=== PATIENT | male | born 1965 | race Caucasian/White ===

== ENCOUNTER 2016-05-03 13:01 | Emergency (ER) | payer BC ==
[~2016-05-03] VITALS: Ht 175.3 cm; Wt 138.9 kg
[~2016-05-03 13:01] MED LIST: HYDR25TA4 PO; IBUP-1050 PO; LISI-461 PO; PRLSR20 PO
[2016-05-03 13:11] VITALS: TEMP 36.9; Ht 175.3 cm; Wt 138.9 kg
[2016-05-03] MEDS ORDERED: ONDANSETRON INJ 2 MG/ML 2 ML VIAL IV STA (13:47)
[2016-05-03] MEDS ORDERED: SODIUM CHLORIDE 0.9% 1000ML 1,000 ML IV STA (13:47)
[2016-05-03] MEDS ORDERED: KETOROLAC TROMETHAMINE 30 MG/ML VIAL IV STA (13:47)
--- NOTE | 2016-05-03 13:51 | EMERGENCY ROOM VISIT NOTE ---
History Report prepared by [place]: Maggie Mccall Under the Supervision of: Dr. Albert Penny M.D. First contact with patient: 13:41 Chief Complaint: FLANK PAIN Stated Complaint: LOWER RIGHT BACK PAIN History of Present Illness The patient is a 50 year old male who presents to the Emergency Room with complaints of persistent bilateral flank pain for the past 1 week. He rates his pain as a 7/10 and states he has been unable to sleep because of his discomfort , which is worse at night. He denies any dysuria or hematuria. He notes he experienced a kidney stone 20 years ago. He denies any recent diarrhea, nausea or vomiting. His reports he fell while jumping off his truck "a few weeks ago", and may have injured his back during that incident. The patient's primary care physician is a Dr. Joe Morrell in [place]. Source of History: patient, spouse/significant other () Onset: 1 week [employer] Position: back (bilateral) Symptom Intensity: 7/10 Timing: other (persistent) Modifying Factors (Worsening): other (pain is worse at night) Associated Symptoms: No diarrhea, No nausea, No urinary symptoms, No vomiting Review of Systems See HPI for pertinent positives & negatives. A total of 10 systems reviewed and were otherwise negative. Past Medical & Surgical Medical Problems: (1) Hypertension Family History Heart disease Hypertension Kidney disease Kidney stones Social History Smoking Status: Never Smoker Smokeless Tobacco Use: No Alcohol Use: occasionally Drug Use: none Marital Status: Housing Status: lives with family Occupation Status: employed Current/Historical Medications Scheduled Furosemide (Lasix), 20 MG PO DAILY Hydrochlorothiazide (Hctz), 25 MG PO DAILY Ibuprofen (Motrin), 600 MG PO TID Lisinopril (Prinivil), 20 MG PO DAILY Omeprazole (Prilosec), 20 MG PO DAILY Scheduled PRN Cyclobenzaprine Hcl (Flexeril), 10 MG PO TID PRN for Muscle Spasms Oxycodone Ir (Roxicodone Ir), 1-2 TAB PO Q4H PRN for Pain Allergies Coded Allergies: No Known Allergies (Verified , 02/14/14) Physical Exam Vital Signs Date Time Temp Pulse Resp B/P Pulse Ox O2 Delivery O2 Flow Rate FiO2 05/03/16 15:47 59 20 125/73 98 05/03/16 14:47 60 20 149/93 99 Room Air 05/03/16 13:51 60 05/03/16 13:11 36.9 70 18 144/92 95 Room Air Physical Exam GENERAL: Patient is in no acute distress. HEENT: No acute trauma, normocephalic atraumatic, mucous membranes moist, no nasal congestion, no scleral icterus. NECK: No stridor, no adenopathy, no meningismus, trachea is midline. LUNGS: Clear to auscultation bilaterally, no wheeze, no rhonchi, breath sounds equal. HEART: Without murmurs gallops or rubs, regular rate and rhythm. ABDOMEN: Soft, mildly diffusely tender, bowel sounds positive, no hernias, no peritonitis. BACK: Bilateral flank discomfort with percussion, no lumbar spinal step off or focal tenderness, some tenderness to palpate both sides of the lumbar musculature. EXTREMITIES: No cyanosis or edema, full range of motion of all the joints without pain or difficulty, no signs for acute trauma. NEUROLOGIC: Oriented x 3, no acute motor or sensory deficits, no focal weakness. SKIN: No rash, no jaundice, no diaphoresis. Medical Decision & Procedures ER Provider Diagnostic Interpretation: This CT scan was reviewed and interpreted by the radiologist and reviewed by myself. CT SCAN OF THE ABDOMEN AND PELVIS WITHOUT CONTRAST IMPRESSION: 1. No evidence of bowel obstruction. No evidence of free air 2. No renal, ureteral, or bladder calculi identified 3. Normal appendix. No evidence of acute diverticulitis. 4. Fat-containing inguinal hernias Electronically signed by: Robby Santiago M.D. 05/03/2016 2:36 PM Laboratory Results 05/03/16 13:45 Red Blood Count 6.08, Mean Corpuscular Volume 58.4, Mean Corpuscular Hemoglobin 19.4, Mean Corpuscular Hemoglobin Concent 33.2, Mean Platelet Volume 8.8, Neutrophils (%) (Auto) 52.5, Lymphocytes (%) (Auto) 38.2, Monocytes (%) (Auto) 7.4, Eosinophils (%) (Auto) 1.4, Basophils (%) (Auto) 0.3, Neutrophils # (Auto) 3.31, Lymphocytes # (Auto) 2.41, Monocytes # (Auto) 0.47, Eosinophils # (Auto) 0.09, Basophils # (Auto) 0.02 05/03/16 13:45 Test 05/03/16 13:45 05/03/16 14:45 White Blood Count 6.31 K/uL (4.8-10.8) Red Blood Count 6.08 M/uL (4.7-6.1) Hemoglobin 11.8 g/dL (14.0-18.0) Hematocrit 35.5 % (42-52) Mean Corpuscular Volume 58.4 fL (80-100) Mean Corpuscular Hemoglobin 19.4 pg (25-34) Mean Corpuscular Hemoglobin Concent 33.2 g/dl (32-36) Platelet Count 249 K/uL (130-400) Mean Platelet Volume 8.8 fL (7.4-10.4) Neutrophils (%) (Auto) 52.5 % Lymphocytes (%) (Auto) 38.2 % Monocytes (%) (Auto) 7.4 % Eosinophils (%) (Auto) 1.4 % Basophils (%) (Auto) 0.3 % Neutrophils # (Auto) 3.31 K/uL (1.4-6.5) Lymphocytes # (Auto) 2.41 K/uL (1.2-3.4) Monocytes # (Auto) 0.47 K/uL (0.11-0.59) Eosinophils # (Auto) 0.09 K/uL (0-0.5) Basophils # (Auto) 0.02 K/uL (0-0.2) RDW Standard Deviation 37.8 fL (36.4-46.3) RDW Coefficient of Variation 18.3 % (11.5-14.5) Immature Granulocyte % (Auto) 0.2 % Immature Granulocyte # (Auto) 0.01 K/uL (0.00-0.02) Polychromasia 1+ Microcytosis PRESENT Ovalocytes 1+ Anion Gap 9.0 mmol/L (3-11) Est Creatinine Clear Calc Drug Dose 179.5 ml/min Estimated GFR () 129.2 Estimated GFR (Non- 111.5 BUN/Creatinine Ratio 17.5 (10-20) Calcium Level 9.4 mg/dl (8.5-10.1) Total Bilirubin 0.7 mg/dl (0.2-1) Aspartate Amino Transf (AST/SGOT) 12 U/L (15-37) Alanine Aminotransferase (ALT/SGPT) 34 U/L (12-78) Alkaline Phosphatase 63 U/L (45-117) Total Protein 7.5 gm/dl (6.4-8.2) Albumin 3.9 gm/dl (3.4-5.0) Globulin 3.6 gm/dl (2.5-4.0) Albumin/Globulin Ratio 1.1 (0.9-2) Lipase 140 U/L (73-393) Urine Color YELLOW Urine Appearance CLEAR (CLEAR) Urine pH 6.5 (4.5-7.5) Urine Specific [place] 1.003 (1.000-1.030) Urine Protein NEG (NEG) Urine Glucose (UA) NEG (NEG) Urine Ketones NEG (NEG) Urine Occult Blood NEG (NEG) Urine Nitrite NEG (NEG) Urine Bilirubin NEG (NEG) Urine Urobilinogen NEG (NEG) Urine Leukocyte Esterase NEG (NEG) The patient's urine dip is negative for infection or blood. Laboratory results reviewed by me. Medications Administered Medications (Trade) Dose Ordered Sig/Kong Route Start Time Stop Time Status Last Admin Dose Admin Ondansetron HCl 4 mg 4 mg NOW STAT IV 05/03/16 13:47 05/03/16 13:49 DC 05/03/16 13:57 4 MG Sodium Chloride (Nss 1000ml) 1,000 ml @ 999 mls/hr Q1H1M STAT IV 05/03/16 13:47 05/03/16 14:47 DC 05/03/16 13:52 999 MLS/HR Morphine Sulfate (MoRPHine SULFATE INJ) 6 mg Q15M PRN IV 05/03/16 14:00 05/03/16 16:02 DC 05/03/16 14:44 6 MG Ketorolac Tromethamine (Toradol Inj) 30 mg NOW STAT IV 05/03/16 13:47 05/03/16 13:49 DC 05/03/16 13:57 30 MG ED Course 1342: The patient was evaluated in room C4. A complete history and physical exam was performed. 1347: Toradol 30 mg IV, NSS 1000 ml @ 999 mls/hr IV, Zofram 4 mg IV. 1400: Morphine Sulfate 6 mg IV. 1505: I reevaluated the patient. He is feeling much better. I discussed his results and discharge instructions and he verbalized complete understanding. Medical Decision The differential diagnoses considered include: Musculoskeletal pain, renal colic , UTI, diverticulitis, colitis, renal failure, electrolyte imbalance, anemia There is no leukocytosis or concerning anemia. No significant electrolyte abnormality, kidney failure or hepatitis. There is no pancreatitis. Urinalysis does not show infection or hematuria. Abdominal and pelvis CT shows no evidence for acute surgical pathology. There was no bowel obstruction or free air, no ureteral stones. The patient's pain is likely musculoskeletal. There is some reproducible muscular soreness on exam. The patient was reassured. He will be discharged with Flexeril, oxycodone, Motrin, heat was encouraged, massage and rest were encouraged. If worsening, he can return. [place] Drug Monitoring Program Search Results: no issues identified Impression Primary Impression: Low back pain Scribe Attestation The scribe's documentation has been prepared under my direction and personally reviewed by me in its entirety. I confirm that the note above accurately reflects all work, treatment, procedures, and medical decision making performed by me. Departure Information Dispostion Home / Self-Care Prescriptions Ibuprofen (Motrin) 600 Mg Tab 600 MG PO TID, #15 TAB With Food Prov: Albert Penny M.D. 05/03/16 Oxycodone Ir (Roxicodone Ir) 5 Mg Tab 1-2 TAB PO Q4H Y for Pain, #12 TAB Prov: Albert Penny M.D. 05/03/16 Cyclobenzaprine Hcl (FLEXERIL) 10 Mg Tab 10 MG PO TID Y for Muscle Spasms, #21 TAB Prov: Albert Penny M.D. 05/03/16 Referrals Joe Brown DO (PCP) Patient Instructions My [facility] Additional Instructions motrin 600 mg 3x per day for 5 days flexeril 1 tab up to 3x per day for muscle relaxation oxy ir 1 tab every 4 hours for severe pain as needed heat, massage, gentle stretching may help return for fever, vomiting or worsening symptoms no lifting
[2016-05-03] MEDS: MoRPHine SULFATE 10 MG/ML CARP/VIAL IV PRN ×2 (13:57→14:44)
[2016-05-03 14:01] LABS: BASO % 0.3 %; BASO ABS # 0.02 K/uL (0-0.2); EOS % 1.4 %; HEMATOCRIT 35.5 % (42-52); IG% 0.2 %; LYMPH % 38.2 %; LYMPH ABS # 2.41 K/uL (1.2-3.4); MEAN CELL VOLUME 58.4 fL (80-100); MEAN CORPUSCULAR HEMOGLOBIN 19.4 pg (25-34); MEAN CORPUSCULAR HGB CONC 33.2 g/dl (32-36); MEAN PLATELET VOLUME 8.8 fL (7.4-10.4); MONO % 7.4 %; NEUT % 52.5 %; PLATELET COUNT 249 K/uL (130-400); RED BLOOD COUNT 6.08 M/uL (4.7-6.1); WHITE BLOOD COUNT 6.31 K/uL (4.8-10.8)
[2016-05-03 14:13] LABS: BUN/CREATININE RATIO 17.5 (10-20); CALCIUM 9.4 mg/dl (8.5-10.1); CREATININE 0.69 mg/dl (0.60-1.40)
[2016-05-03 14:16] LABS: ALB/GLOB RATIO 1.1 (0.9-2)
[2016-05-03 14:24] LABS: COMPLETE YES; MICROCYTOSIS PRESENT; OVALOCYTES 1+; POLYCHROMASIA 1+
--- NOTE | 2016-05-03 14:38 | DIAGNOSTIC IMAGING REPORT ---
CT SCAN OF THE ABDOMEN AND PELVIS WITHOUT CONTRAST CLINICAL HISTORY: Flank pain hematuria COMPARISON STUDY: No previous studies for comparison. TECHNIQUE: CT scan of the abdomen and pelvis was performed from the lung bases to the proximal femurs. Images are reviewed in the axial, sagittal, and coronal planes. IV contrast was not administered for this examination. CT DOSE: 1801.93 mGy.cm FINDINGS: Lower chest: The heart is the upper limits of normal in size. There are no significant pleural effusions. Liver: The unenhanced liver is normal in size, contour, and attenuation. There is no intrahepatic biliary ductal dilatation. Gallbladder: Unremarkable. Spleen: Normal in size and attenuation. Pancreas: Unremarkable. Adrenal glands: Unremarkable. Kidneys: No renal, ureteral, or bladder calculi are visualized. Bowel: There are no transition zones indicate bowel obstruction. The appendix appears normal. There is no evidence of acute diverticulitis. Peritoneum: There is no intraperitoneal free air or abdominal ascites. There are bilateral fat-containing inguinal hernias left larger than right. There is very subtle central mesenteric edema. Mesenteric lymph nodes are at the upper limits of normal in size. Vasculature: The abdominal aorta is normal in course and caliber. Adenopathy: None. Pelvic viscera: There is mild bladder distention. Skeletal structures: There is a fat-containing right gluteus intramuscular lipoma IMPRESSION: 1. No evidence of bowel obstruction. No evidence of free air 2. No renal, ureteral, or bladder calculi identified 3. Normal appendix. No evidence of acute diverticulitis. 4. Fat-containing inguinal hernias Electronically signed by: Robby Santiago M.D. 05/03/2016 2:36 PM Dictated Date/Time: 05/03/2016 2:31 PM
[2016-05-03] MEDS ORDERED: LISI20TA3 PO (14:41)
[2016-05-03] MEDS ORDERED: FURO-85 PO (14:41)
[2016-05-03 15:05] LABS: URINE APPEARANCE CLEAR (CLEAR); URINE BILIRUBIN NEG (NEG); URINE COLOR YELLOW; URINE NITRITE NEG (NEG); URINE PH 6.5 (4.5-7.5); URINE SPECIFIC GRAVITY 1.003 (1.000-1.030); UROBILINOGEN NEG (NEG); ZZUR CULT IF INDIC CLEAN CATCH NO
[2016-05-03] MEDS ORDERED: OXYC1TAB3 PO (15:18)
[2016-05-03] MEDS ORDERED: CYCL10TA6 PO (15:18)
[2016-05-03] MEDS ORDERED: IBUP600T44 PO (15:18)
[2016-05-03 15:19] LABS: MANUAL MICROSCOPIC REQUIRED? NO; REVIEW REQ? NO
[2016-05-03 15:47] VITALS: BP 125/73; PULSE 59; O2SAT 98
== END 2016-05-03 15:49 | disposition home or self-care (01) ==
LOC: C.EDB 13:02 → C.EDC 15:49
DX: M54.5 Low back pain (principal); I10 Essential (primary) hypertension

== ENCOUNTER 2019-01-10 17:24 | Observation (INO) ==
[2019-01-10] MEDS ORDERED: NITROGLYCERIN 2% OINTMENT 30GM TUBE EXT STA (18:17)
[2019-01-10] MEDS ORDERED: FAMOTIDINE 20MG/5ML IV PUSH IV STA (18:17)
[2019-01-10 18:51] LABS: Basophils # (auto) 0.02 K/uL (0-0.2); Basophils % (auto) 0.3 %; Eosinophils % (auto) 1.6 %; Hematocrit (blood only) 31.2 % (42-52); Hemoglobin 10.3 g/dL (14.0-18.0); Immature Granulocytes # (auto) 0.02 K/uL (0.00-0.02); Immature Granulocytes % (auto) 0.3 %; Lymphocytes # (auto) 2.24 K/uL (1.2-3.4); Lymphocytes % (auto) 34.7 %; Mean Corpuscular Volume 63.5 fL (80-100); Mean Platelet Volume 9.8 fL (7.4-10.4); Monocytes # (auto) 0.46 K/uL (0.11-0.59); Monocytes % (auto) 7.1 %; Neutrophils # (auto) 3.61 K/uL (1.4-6.5); Platelet Count 180 K/uL (130-400); RDW Coefficient of Variation 16.6 % (11.5-14.5); RDW Standard Deviation 38.1 fL (36.4-46.3); Red Blood Count 4.91 M/uL (4.7-6.1); White Blood Count 6.45 K/uL (4.8-10.8)
--- NOTE | 2019-01-10 18:58 | XRay Report ---
XR chest 1V portable HISTORY: 53 years-old Male cp, sob acute atypical chest pain with shortness of breath COMPARISON: Chest radiograph 01/18/2014 TECHNIQUE: Portable AP view of the chest FINDINGS: Cardiac silhouette is enlarged, increased in size from comparison study. No pneumothorax, pleural eff usion, focal airspace consolidation or overt pulmonary edema. Mild right hemidiaphragmatic elevation. General changes of the shoulders and spine. IMPRESSION: Cardiomegaly without acute process. The above report was generated using voice recognition software. It may contain grammatical, syntax o r spelling errors. Electronically signed by: Sergio Costa M.D. 01/10/2019 6:57 PM
[2019-01-10 19:05] LABS: D Dimer 1030 ug/L FEU (0-500)
[2019-01-10 19:09] LABS: Alanine Aminotransferase 35 U/L (12-78); Albumin Level 3.8 gm/dl (3.4-5.0); Aspartate Aminotransferase 18 U/L (15-37); BUN Creatinine Ratio 19.8 (10-20); Blood Urea Nitrogen 15 mg/dl (7-18); Calcium 9.2 mg/dl (8.5-10.1); Carbon Dioxide 26 mmol/L (21-32); Chloride 104 mmol/L (98-107); Creatinine Clr Calc Pharmacy 159.7 ml/min; Est GFR (African American) 122.2; Est GFR (Non-African American) 105.5; Glucose 88 mg/dl (70-99); Lipase 99 U/L (73-393); Magnesium 2.1 mg/dl (1.8-2.4); Potassium 2.9 mmol/L (3.5-5.1); Sodium 140 mmol/L (136-145)
[2019-01-10] MEDS ORDERED: POTASSIUM CHLORIDE 20 MEQ TABCR PO STA (19:10)
[2019-01-10 19:13] LABS: Anisocytosis Present; Hypochromasia Present; Polychromasia 1+
[2019-01-10 19:14] LABS: Albumin Globulin Ratio 1.1 (0.9-2); Alkaline Phosphatase 54 U/L (45-117); Bilirubin,Total 0.6 mg/dl (0.2-1); Globulin 3.4 gm/dl (2.5-4.0); NT Pro B Type Natriuretic Pept 668 pg/ml (0-900); Total Protein 7.2 gm/dl (6.4-8.2); Troponin I < 0.015 ng/ml (0-0.045)
[2019-01-10] MEDS ORDERED: OPTIRAY 320 125ml IV PRN (19:59)
--- NOTE | 2019-01-10 20:22 | CT Scan Report ---
CT angio chest PE protocol CT DOSE: 833.37 mGy.cm HISTORY: 53 years-old Male with PE. Acute shortness of breath with chest pain TECHNIQUE: Multiple CTA images of the chest were obtained after the intravenous administration of 119 ml Optiray 320. Coronal and sagittal MIPS were obtained from the axial data set and were submitted for review. All measurements were obtained according to NASCET criteria. A dose lowering technique w as utilized adhering to the principles of ALARA. COMPARISON: Chest radiograph 01/10/2019 FINDINGS: CTA: Heart is mildly enlarged. No pericardial effusion. Left heart structures and left ventricular outflow tract are suboptimally opacified secondary to contrast bolus timing. Mild fusiform dilation of the a scending thoracic aorta, 4.0 x 4.0 cm. No dissection. The pulmonary arterial tree is opacified to lev el the subsegmental branches. The distal segmental and subsegmental branches however are suboptimally visualized secondary to respiratory motion. No focal filling defects identified to suggest pulmonary thromboembolic disease. CT CHEST: Mildly heterogeneous appearance of the thyroid. Nonspecific mildly prominent subcarinal and right hil ar lymph nodes. Trace pleural effusions are noted bilaterally. No pneumothorax. Mild emphysema with b ilateral bronchial wall thickening. Mild mosaic attenuation of the lung bases suggest air-trapping. M inimal bibasilar groundglass densities suggest atelectasis. No suspicious pulmonary nodules or masses . Central airways appear patent. Hyperdense material noted within the proximal gastric lumen. Gynecomastia. Bones appear to be intact. IMPRESSION: 1. No evidence of pulmonary thromboembolic disease. 2. Mild fusiform dilation of the ascending thoracic aorta, 4.0 x 4.0 cm. 3. Emphysema with bilateral bronchial wall thickening suggestive of probable bronchitis. 4. Mild bibasilar atelectasis with air trapping. 5. Cardiomegaly. 6. Trace pleural effusions. The above report was generated using voice recognition software. It may contain grammatical, syntax o r spelling errors. Electronically signed by: Sergio Costa M.D. 01/10/2019 8:20 PM
[2019-01-10] MEDS ORDERED: DEXAMETHASONE SOD PHOSPHATE 10 MG in SYRINGE 0 ML IV STA (20:23)
[2019-01-10] MEDS ORDERED: ALBUT/IPRATROP 3MG/0.5MG NEB 3 ML VIAL NEB STA (20:23)
[2019-01-10] MEDS ORDERED: DEXAMETHASONE **PF** INJ 10 MG/ML VIAL ONE (21:17)
--- NOTE | 2019-01-10 21:33 | Ultrasound Report ---
BILATERAL LOWER EXTREMITY VENOUS DOPPLER HISTORY: Acute edema of the bilateral lower extremity le edema, elevated dimer COMPARISON STUDY: Duplex venous Doppler study 11/17/2014. FINDINGS: There is normal compressibility, flow, and augmentation within the bilateral lower extremit y deep venous systems. Cast vessels are suboptimally visualized secondary to lower extremity subcutan eous edema. A mildly complex right-sided Estes's cyst is noted, 2.7 x 5.3 x 2.9 cm. Nonspecific mildl y enlarged lymph node of the left inguinal distribution, 3.2 x 1.7 cm is nonspecific with prominent f atty hilum and normal-appearing cortex. This is likely on a physiologic basis. IMPRESSION: No DVT within the right or left lower extremity. Electronically signed by: Sergio Costa M.D. 01/10/2019 9:31 PM
[2019-01-10] MEDS ORDERED: ACETAMINOPHEN 325 MG TAB PO STA (22:26)
--- NOTE | 2019-01-10 22:26 | Emergency Department Note ---
Entered by Doris Singh acting as a scribe for History of Present Illness General Chief complaint: Shortness of Breath/Dyspnea Stated complaint: SHORTNESS OF BREATH, SHARP PAIN IN ABDOMEN Time Seen by Provider: 01/10/19 18:03 Source: patient History of Present Illness Onset (ago): day(s) 3 Location: left (lung) and right (lung) Radiation: abdomen Pain Consistency: + other (Worsening) Maximum Pain Intensity: 7 Quality: + other (Shortness of breath) Relieved By: not by medication (Tylenol, Magnesium Citrate) Exacerbated By: + movement Associated symptoms: + shortness of breath and + other (Positive abdominal pain, lower extremity edema.); no fever/chills The patient is a 53 year old male presenting to the Emergency Department complaining of worsening shortness of breath and chest pain starting 3 days ago. The patient reports that he is short of breath. He explains that he has chest/abdominal pain and that this pain radiates from the left side of his abdomen to the right side of his abdomen. No prior similar episodes. He states that when he walks around his shortness of breath worsens. No recent URI symptoms. He notes that his lower extremities are swollen. He adds that he ate spicy food and that this worsened his abdominal pain but has since then stopped eating spicy foods and still has this abdominal pain. The patient reports that he has been taking Tylenol and Magnesium Citrate for his symptoms thinking perhaps it was related to constipation and that this has not been helping. He states that he normally wears a C-PAP at night but that this has not been he lping his symptoms either. He notes that he used to be a smoker but quit about 20 years ago. The patient denies fevers, chills, history of asthma, history of pneumonia and history of cardiac disease. Home Medications Home Medications Medication Instructions Recorded Confirmed Type cabergoline 0.5 mg PO DIRECTED 01/10/19 01/10/19 History cholecalciferol (vitamin D3) 5,000 unit PO BID 01/10/19 01/10/19 History [Vitamin D3] furosemide 20 mg PO QAM 01/10/19 01/10/19 History hydrochlorothiazide 25 mg PO DAILY 01/10/19 01/10/19 History lisinopril 20 mg PO DAILY 01/10/19 01/10/19 History magnesium oxide 400 mg PO BID 01/10/19 01/10/19 History metformin 1,000 mg PO BID 01/10/19 01/10/19 History [id number]-epa-fish oil-D3 [Dry 1 cap PO BID 01/10/19 01/10/19 History [facility] [place] Benefits] potassium chloride 20 meq PO BID 01/10/19 01/10/19 History rosuvastatin 10 mg PO HS 01/10/19 01/10/19 History turmeric 400 mg PO BID 01/10/19 01/10/19 History Allergies Allergy/AdvReac Type Severity Reaction Status Date / Time No Known Allergies Allergy Verified 01/10/19 18:34 Past Med/Surg History Medical History History of kidney stones High cholesterol Hypertension (Chronic) Surgical History History of knee surgery Family History Other Heart disease Lung disease Social History Feels Safe at Home: Yes Smoking Status: Never smoker Review of Systems See HPI for pertinent positives & negatives. and A total of 10 systems reviewed and were otherwise negative Physical Exam Vital Signs Vital Signs - 24 hr 01/10/19 17:36 01/10/19 17:47 01/10/19 18:03 Temperature 36.8 C Temperature Source Oral Sepsis Recent Fever Within 48 Hours No Sepsis New/Unexplained Change in Mental Status No Sepsis Action Taken by Nursing No Action Required Pulse Rate 52 L 49 L Pulse Rate [Apical] Pulse Rate from SpO2 Sensor 50 L Respiratory Rate 20 18 Respiratory Effort / Characteristics Non-Labored Respiratory Depth Normal Blood Pressure 167/91 H 170/95 H Blood Pressure [Right Arm] Blood Pressure Mean 116 120 Blood Pressure Mean [Right Arm] Pulse Oximetry 99 100 98 Oxygen Delivery Method Room Air Room Air 01/10/19 18:43 01/10/19 19:51 01/10/19 21:50 Temperature Temperature Source Sepsis Recent Fever Within 48 Hours Sepsis New/Unexplained Change in Mental Status Sepsis Action Taken by Nursing Pulse Rate 55 L 47 L 50 L Pulse Rate [Apical] 47 L Pulse Rate from SpO2 Sensor 51 L 47 L 49 L Respiratory Rate 26 H 18 18 Respiratory Effort / Characteristics Non-Labored Respiratory Depth Normal Blood Pressure 176/97 H 147/88 H 161/90 H Blood Pressure [Right Arm] 147/88 H Blood Pressure Mean 123 107 113 Blood Pressure Mean [Right Arm] 107 Pulse Oximetry 100 97 97 Oxygen Delivery Method Room Air 01/10/19 21:56 01/10/19 22:00 01/10/19 23:00 Temperature Temperature Source Sepsis Recent Fever Within 48 Hours Sepsis New/Unexplained Change in Mental Status Sepsis Action Taken by Nursing Pulse Rate 51 L 46 L Pulse Rate [Apical] 47 L Pulse Rate from SpO2 Sensor 49 L Respiratory Rate 17 17 16 Respiratory Effort / Characteristics Non-Labored Respiratory Depth Normal Blood Pressure 159/84 H 142/74 H Blood Pressure [Right Arm] 161/90 H Blood Pressure Mean 109 96 Blood Pressure Mean [Right Arm] 113 Pulse Oximetry 96 95 Oxygen Delivery Method Room Air GENERAL: alert, well appearing, well nourished, no distress, non-toxic EYE EXAM: normal conjunctiva, PERRL and EOM's grossly intact OROPHARYNX: no exudate, no erythema, lips, buccal mucosa, and tongue normal and mucous membranes are moist NECK: supple, no nuchal rigidity, no adenopathy, non-tender LUNGS: Clear to auscultation. Normal chest wall mechanics. No wheezes, rhonchi or rales. HEART: no murmurs, S1 normal and S2 normal CHEST: Mild reproducible tenderness to bilateral costal margins. ABDOMEN: abdomen soft, non-tender, normo-active bowel sounds, no masses, no rebound or guarding. BACK: Back is symmetrical on inspection and there is no deformity, no midline tenderness, no CVA tenderness. SKIN: no rashes and no bruising UPPER EXTREMITIES: upper extremities are grossly normal. FROM, nml pulses b/l. LOWER EXTREMITIES: 2+ bilateral lower extremity edema. FROM, nml pulses b/l. NEURO EXAM: Normal sensorium, cranial nerves II-XII grossly intact, normal speech, no gross weakness of arms, no gross weakness of legs. Course 1806: The patient was evaluated in room C2B, and a complete history and physical examination were performed. 1917: I updated the patient and his family on his results at this time. Patient has a history of thalassemia. Does not know his baseline H&H. 2055: I reevaluated the patient at this time. No current trouble breathing while at rest. 2215: I reevaluated the patient at this time who reports that he has a headache. 2221: I discussed the patients case with Dr. Rolando TRACY hospitalist. She will evaluate the patient for further management. Consultations Consultation #1: I discussed the patients case with Dr. Rolando TRACY hospitalist. She will evaluate the patient for further management. Time: 22:22 Administered Medications Ioversol (Optiray 320 125ml) 119 ml IV ONCE PRN PRN Reason: Interaction Checking Stop: 01/14/19 19:58 Last Admin: 01/10/19 20:00 Dose: 119 ml Documented by: [id number] Discontinued Medications Acetaminophen (Tylenol) 650 mg PO NOW STA Stop: 01/10/19 22:27 Last Admin: 01/10/19 22:32 Dose: 650 mg Documented by: [id number] Albuterol (Duoneb) 3 ml NEB NOW STA Stop: 01/10/19 20:24 Last Admin: 01/10/19 20:46 Dose: Not Given Documented by: [id number] Dexamethasone Sodium Phosphate (Decadron Pf) Confirm Administered Dose 10 mg .ROUTE .STK-MED ONE Stop: 01/10/19 21:18 Last Admin: 01/10/19 21:54 Dose: 10 mg Documented by: [id number] Famotidine (Pepcid 20mg Iv Push) 20 mg IV ONE STA Stop: 01/10/19 18:18 Last Admin: 01/10/19 18:37 Dose: 20 mg Documented by: [id number] Dexamethasone Sodium Phosphate (10 mg/ Syringe) 2.5 mls @ 1 mls/min IV NOW STA Stop: 01/10/19 20:25 Last Admin: 01/10/19 21:59 Dose: Not Given Documented by: [id number] Nitroglycerin (Nitro-Bid 2%) 0.5 inch EXT NOW STA Stop: 01/10/19 18:18 Last Admin: 01/10/19 18:36 Dose: 0.5 inch Documented by: [id number] Potassium Chloride (Klor-Con M20) 40 meq PO NOW STA Stop: 01/10/19 19:11 Last Admin: 01/10/19 19:49 Dose: 40 meq Documented by: [id number] Medical Decision Making Differential Diagnosis Differential diagnoses includes but is not limited to pneumonia, bronchitis, COPD/Asthma exacerbation, congestive heart failure, acute coronary syndrome, myocardial infarction, pericarditis, pulmonary embolus, aortic dissection, pneumonia, pneumothorax, musculoskeletal, shingles, esophageal. Medical Records Attestation: I reviewed the patient's medical records. Home Medications Current Medication List: was personally reviewed by me Laboratory Data Attestation: I reviewed the patient's lab results. Result diagrams: 01/10/19 18:34 01/10/19 18:34 Lab Results 01/10/19 01/10/19 01/10/19 Range/Units 18:34 18:34 18:34 WBC 6.45 (4.8-10.8) K/uL RBC 4.91 (4.7-6.1) M/uL Hgb 10.3 L (14.0-18.0) g/dL Hct 31.2 L (42-52) % MCV 63.5 L (80-100) fL MCH 21.0 L (25-34) pg MCHC 33.0 (32-36) g/dL RDW Std Deviation 38.1 (36.4-46.3) fL RDW Coeff of Radha 16.6 H (11.5-14.5) % Plt Count 180 (130-400) K/uL MPV 9.8 (7.4-10.4) fL Immature Gran % (Auto) 0.3 % Neut % (Auto) 56.0 % Lymph % (Auto) 34.7 % [place] % (Auto) 7.1 % Eos % (Auto) 1.6 % Baso % (Auto) 0.3 % Immature Gran # (Auto) 0.02 (0.00-0.02) K/uL Neut # (Auto) 3.61 (1.4-6.5) K/uL Lymph # (Auto) 2.24 (1.2-3.4) K/uL [place] # (Auto) 0.46 (0.11-0.59) K/uL Eos # (Auto) 0.10 (0-0.5) K/uL Baso # (Auto) 0.02 (0-0.2) K/uL Polychromasia 1+ Hypochromasia Present Anisocytosis Present D-Dimer 1030 H* (0-500) ug/L FEU Sodium 140 (136-145) mmol/L Potassium 2.9 L (3.5-5.1) mmol/L Chloride 104 (98-107) mmol/L Carbon Dioxide 26 (21-32) mmol/L Anion Gap 10.0 (3-11) BUN 15 (7-18) mg/dl Creatinine 0.75 (0.6-1.4) mg/dl Est Cr Clr Drug Dosing 159.7 ml/min Est GFR ( Amer) 122.2 Est GFR (Non-Af Amer) 105.5 BUN/Creatinine Ratio 19.8 (10-20) Glucose 88 (70-99) mg/dl Calcium 9.2 (8.5-10.1) mg/dl Magnesium 2.1 (1.8-2.4) mg/dl Total Bilirubin 0.6 (0.2-1) mg/dl AST 18 (15-37) U/L ALT 35 (12-78) U/L Alkaline Phosphatase 54 (45-117) U/L Troponin I < 0.015 (0-0.045) ng/ml NT-Pro-B Natriuret Pep 668 (0-900) pg/ml Total Protein 7.2 (6.4-8.2) gm/dl Albumin 3.8 (3.4-5.0) gm/dl Globulin 3.4 (2.5-4.0) gm/dl Albumin/Globulin Ratio 1.1 (0.9-2) Lipase 99 (73-393) U/L Imaging Data Radiologist's Impression: Radiology results as stated below per my review and t he radiologist's interpretation: CT angio chest PE protocol CT DOSE: 833.37 mGy.cm HISTORY: 53 years-old Male with PE. Acute shortness of breath with chest pain TECHNIQUE: Multiple CTA images of the chest were obtained after the intravenous administration of 119 ml Optiray 320. Coronal and sagittal MIPS were obtained from the axial data set and were submitted for review. All measurements were obtained according to NASCET criteria. A dose lowering technique was utilized adhering to the principles of ALARA. COMPARISON: Chest radiograph 01/10/2019 FINDINGS: CTA: Heart is mildly enlarged. No pericardial effusion. Left heart structures and left ventricular outflow tract are suboptimally opacified secondary to contrast bolus timing. Mild fusiform dilation of the ascending thoracic aorta, 4.0 x 4.0 cm. No dissection. The pulmonary arterial tree is opacified to level the subsegmental branches. The distal segmental and subsegmental branches however are suboptimally visualized secondary to respiratory motion. No focal filling defects identified to suggest pulmonary thromboembolic disease. CT CHEST: Mildly heterogeneous appearance of the thyroid. Nonspecific mildly prominent subcarinal and right hilar lymph nodes. Trace pleural effusions are noted bilaterally. No pneumothorax. Mild emphysema with bilateral bronchial wall thickening. Mild mosaic attenuation of the lung bases suggest air-trapping. Minimal bibasilar groundglass densities suggest atelectasis. No suspicious pulmonary nodules or masses. Central airways appear patent. Hyperdense material noted within the proximal gastric lumen. Gynecomastia. Bones appear to be intact. IMPRESSION: 1. No evidence of pulmonary thromboembolic disease. 2. Mild fusiform dilation of the ascending thoracic aorta, 4.0 x 4.0 cm. 3. Emphysema with bilateral bronchial wall thickening suggestive of probable bronchitis. 4. Mild bibasilar atelectasis with air trapping. 5. Cardiomegaly. 6. Trace pleural effusions. The above report was generated using voice recognition software. It may contain grammatical, syntax or spelling errors. Electronically signed by: Sergio Costa M.D. 01/10/2019 8:20 PM XR chest 1V portable HISTORY: 53 years-old Male cp, sob acute atypical chest pain with shortness of breath COMPARISON: Chest radiograph 01/18/2014 TECHNIQUE: Portable AP view of the chest FINDINGS: Cardiac silhouette is enlarged, increased in size from comparison study. No pneumothorax, pleural effusion, focal airspace consolidation or overt pulmonary edema. Mild right hemidiaphragmatic elevation. General changes of the shoulders and spine. IMPRESSION: Cardiomegaly without acute process. The above report was generated using voice recognition software. It may contain grammatical, syntax or spelling errors. Electronically signed by: Sergio Costa M.D. 01/10/2019 6:57 PM BILATERAL LOWER EXTREMITY VENOUS DOPPLER HISTORY: Acute edema of the bilateral lower extremity le edema, elevated dimer COMPARISON STUDY: Duplex venous Doppler study 11/17/2014. FINDINGS: There is normal compressibility, flow, and augmentation within the bilateral lower extremity deep venous systems. Cast vessels are suboptimally visualized secondary to lower extremity subcutaneous edema. A mildly complex right-sided Estes's cyst is noted, 2.7 x 5.3 x 2.9 cm. Nonspecific mildly enlarged lymph node of the left inguinal distribution, 3.2 x 1.7 cm is nonspecific with prominent fatty hilum and normal-appearing cortex. This is likely on a physiologic basis. IMPRESSION: No DVT within the right or left lower extremity. Electronically signed by: Sergio Costa M.D. 01/10/2019 9:31 PM ECG Data Attestation: I personally reviewed and interpreted this ECG as follows: Indication: back/shoulder pain Rate (beats per minute): 51 Rhythm: sinus bradycardia Findings: + other (Normal axis.) and + 1st degree AV block Blood Pressure Blood Pressure Findings: Elevated blood pressure Blood Pressure Disposition: further management by hospitalist [facility] Narrative Heart score 4 Patient here with concerning story and multiple risk factors for ACS. Patient does not currently have a instructional technologist and has not had any recent cardiac testing. Patient's H&H found to be low, however upon additional questioning patient admitted to a prior history of thalassemia, however does not know what his baseline H&H are. Patient's d-dimer found to be elevated and patient sent for CT angiography of the chest due to his chest pain and trouble breathing as well as bilateral lower extremity Dopplers to reduce his recent new lower extremity edema. These were all negative, with the exception of a questionable bronchitis on the CAT scan of the chest. Patient declined nebulizer treatment. Discussed with patient my concerns given his risk and elevated heart score, and he was in agreement with plan for additional inpatient evaluation. Case discussed with hospitalist. No evidence of occult infectious etiology otherwise or GI etiology. No evidence of acute vascular pathology. Patient was given oral potassium repletion due to hypokalemia here which is likely secondary to his antihypertensive medications. Impression & Plan Chest pain, Hypertension, Dyspnea on exertion, Hypokalemia, Edema of lower extremity Discharge Plan Visit Data Chief Complaint: Shortness of Breath/Dyspnea Stated Complaint: SHORTNESS OF BREATH, SHARP PAIN IN ABDOMEN ED Provider: Kenia Lester Discharge Problem: Chest pain, Hypertension, Dyspnea on exertion, Hypokalemia, Edema of lower extremity Patient Disposition: Being Evaluated by Hospitalist Discharge Instructions Interventions: ED Discharge Assessment Last Done: 01/11/19 00:29 Discharge Problem: Chest pain Qualifiers: Chest pain type: unspecified Qualified Code(s): R07.9 - Chest pain, unspecified Hypertension Qualifiers: Hypertension type: unspecified Qualified Code(s): I10 - Essential (primary) hypertension The scribe's documentation has been prepared under my direction and personally reviewed by me in its entirety. I confirm that the note above accurately reflects all work, treatment, procedures, and medical decision making performed by me.
--- NOTE | 2019-01-10 23:39 | History & Physical Report ---
Date of Service January 10, 2019 Assessment & Plan (1) Chest pain: Patient is a pleasant 53 yo obese M PMH HTN, pre-diabetes, HLD, former smoker who presents with a 5 day history of epigastric pain, dyspnea on exertion, and left leg swelling, admitted for ACS work up. Chest pain -Admit to tele -Will trend troponin -Have ordered stress test in AM, npo from midnight -Considering constellation of symptoms, will also check BNP in AM -Recommend stress test with elevated heart score -Pepcid qshift, GI cocktail prn -Will add daily ASA Dyspnea on Exertion -prn duonebs HTN -Cont home meds -Titrate prn Hypokalemia -2.9 on arrival -Repleted with 40 in ER, 20 on admission, and NSS with 20K at 125. -Cont home dosing as well -Cont to monitor Edema -Scans negative for PE or DVT -Cont to monitor -Follow BNP HLD -Cont home regimen -Check fasting lipids in AM Thalassemia -H/H 02/17 -Cont to monitor Code: full DVTP: lovenox Dispo: tele (2) Hypertension: (3) Dyspnea on exertion: (4) Hypokalemia: (5) Edema of lower extremity: (6) High cholesterol: (7) Thalassemia: History of Present Illness Chief Complaint: Dyspnea on exertion, epigastric pain Primary Care Provider: Joe Brown DO Patient is a pleasant 53 yo obese M PMH HTN, pre-diabetes, HLD, former smoker who presents with a 5 day history of epigastric pain, dyspnea on exertion, and left leg swelling. History provided by as patient had a migraine and was sleeping on arrival. Patient originally thought the epigastric discomfort was related to eating spicy foods, but denied any reflux symptoms. He then thought he was possible constipated, so took a fair amount of laxatives, which helped to clear out his bowels but did not alleviate the pain. In the past few days, he has also noted dyspnea on exertion as well as noticing his L leg has begun to swell. He has a h/o knee surgery on the R, so swelling in the R leg is not atypical, but the left leg swelling is abnormal. In the ER, patient hypertensive but vitals otherwise stable. Initial labwork revealed a d-dimer of 1030, Hgb 10.3/hct 31, K+ of 2.9, negative troponin, negative LFTs, negative lipase. Imaging noted NO DVT or PE, CXR with cardiomegaly and no acute process. He was given a duoneb and 10 decadron, 40 of K+, nitro paste (which gave him the migraine), and pepcid. His heart score was evaluated to be 4, and he will be admitted for a chest pain rule out. Allergies Allergy/AdvReac Type Severity Reaction Status Date / Time No Known Allergies Allergy Verified 01/10/19 18:34 Home Medications Home Medications Medication Instructions Recorded Confirmed Type cabergoline 0.5 mg PO DIRECTED 01/10/19 01/10/19 History cholecalciferol (vitamin D3) 5,000 unit PO BID 01/10/19 01/10/19 History [Vitamin D3] furosemide 20 mg PO QAM 01/10/19 01/10/19 History hydrochlorothiazide 25 mg PO DAILY 01/10/19 01/10/19 History lisinopril 20 mg PO DAILY 01/10/19 01/10/19 History magnesium oxide 400 mg PO BID 01/10/19 01/10/19 History metformin 1,000 mg PO BID 01/10/19 01/10/19 History ojfnr-[id number]-epa-fish oil-D3 [Dry 1 cap PO BID 01/10/19 01/10/19 History Eye [place] Benefits] potassium chloride 20 meq PO BID 01/10/19 01/10/19 History rosuvastatin 10 mg PO HS 01/10/19 01/10/19 History turmeric 400 mg PO BID 01/10/19 01/10/19 History Past Med/Surg History Medical History History of kidney stones High cholesterol Hypertension (Chronic) Surgical History History of knee surgery Family History Other Heart disease Lung disease Social History Preferred Language: Welsh Communication Ability: Effective Damage Appraiser Required: No Beliefs That Will Affect Care: Sabianist Sabianist Beliefs: Religious Current Living Situation: Spouse Other Information That Helps Us Care for You: No Feels Safe at Home: Yes Safety Concerns: Feels Safe At This Time Smoking Status: Former smoker Do You Dip or Chew Tobacco: No ; Smoking End Date: 25 years ago ; Second Hand Exposure: No ; Tobacco Cessation Education Requested by Patient: No Hx Alcohol Use: No Hx Substance Use: No Review of Systems Review of Systems: All systems reviewed & are unremarkable except as noted in HPI & below Constitutional: no fever, no chills and no weakness Respiratory: + dyspnea on exertion Cardiovascular: + chest pain (epigastric), + dyspnea on exertion and + edema; no radiating jaw, neck or arm pain, no orthopnea, no palpitations, no lightheadedness and no syncope Gastrointestinal: + abdominal pain, + bloating and + diarrhea/loose stools (from laxative use); no heartburn, no nausea and no vomiting Physical Exam Constitutional: WD/WN, vitals as above + morbidly obese and comfortable; not in distress Respiratory: normal respiratory effort, lungs clear to auscultation Cardiovascular: Rate/Rhythm: regular rate and regular rhythm Extremities: + edema (1-2+ to shins bilaterally) Gastrointestinal (Abdomen): Inspection/Auscultation: normal bowel sounds Percussion/Palpation: + abdomen tender (epigastric) Skin: no rashes, warm and dry Neurologic: PERRL, EOMI, accommodation nl, no face palsy, no dysarthria Psychiatric: Orientation: alert and oriented x 3 Results & Data Vital Signs (Past 12 Hours) Vital Signs Temp Pulse Pulse Resp BP BP Pulse Ox 01/10/19 23:00 46 L 16 142/74 H 01/10/19 22:00 51 L 17 159/84 H 95 01/10/19 21:56 47 L 17 161/90 H 96 01/10/19 21:50 50 L 18 161/90 H 97 01/10/19 19:51 47 L 47 L 18 147/88 H 147/88 H 97 01/10/19 18:43 55 L 26 H 176/97 H 100 01/10/19 18:03 98 01/10/19 17:47 49 L 18 170/95 H 100 01/10/19 17:36 98.2 F 52 L 20 167/91 H 99 Code Status & VTE Plan Code Status Full VTE Prophylaxis Plan VTE Prophylaxis will be ordered: Yes Supervising Physician Co-Signing Physician Notes Patient seen and examined, chart reviewed, case discussed with Dr. Worthy and I agree with her assessment and plan as documented above. PG Care Time/CCT Total # of Minutes Spent Total Time Spent with Patient: Total time spent is greater than 50% in coordination of care (as documented) at patient's floor/unit and/or counseling patient: Resident Activity Tracking Resident Involvement: Resident Care Provided Care Provided: Adult Hospital Medicine (1) Chest pain Chest pain type: unspecified Qualified Code(s): R07.9 - Chest pain, unspecified (2) Hypertension Hypertension type: unspecified Qualified Code(s): I10 - Essential (primary) hypertension
[2019-01-11] MEDS ORDERED: ALUMINUM/MAGNESIUM SUSP 30 ML UDC PO PRN (00:42)
[2019-01-11] MEDS ORDERED: GLUCOSE 10 TABS/TUBE PO PRN (00:42)
[2019-01-11] MEDS ORDERED: CARBOHYDRATES FOR HYPOGLYCEMIA PO PRN (00:42)
[2019-01-11] MEDS ORDERED: POTASSIUM CHLORIDE 20 MEQ TABCR PO STA (00:42)
[2019-01-11] MEDS ORDERED: ACETAMINOPHEN 325 MG TAB PO PRN (00:42)
[2019-01-11] MEDS ORDERED: DEXTROSE 50% 50 ML SYRINGE IV PRN (00:42)
[2019-01-11] MEDS ORDERED: MoRPHine SULFATE 2 MG/ML CARP IV PRN (00:42)
[2019-01-11] MEDS ORDERED: ONDANSETRON INJ 2 MG/ML 2 ML VIAL IV PRN (00:42)
[2019-01-11] MEDS ORDERED: GLUCOSE 40% GEL 15 GM TUBE PO PRN (00:42)
[2019-01-11] MEDS ORDERED: GLUCAGON FOR INJ 1 MG VIAL SQ PRN (00:42)
[2019-01-11] MEDS ORDERED: POLYETHYLENE (MIRALAX) 17 GM PACK PO PRN (00:42)
[2019-01-11] MEDS ORDERED: MAGNESIUM HYDROXIDE SUSP 30 ML UDC PO PRN (00:42)
[2019-01-11] MEDS ORDERED: NITROGLYCERIN SL 0.4 MG/TAB TAB SL PRN (00:42)
[2019-01-11] MEDS ORDERED: ALBUT/IPRATROP 3MG/0.5MG NEB 3 ML VIAL NEB PRN (00:42)
[2019-01-11] MEDS: NSS + 20MEQ KCL 20 MEQ/1,000 ML BAG IV SCH ×2 (01:21→08:19)
[2019-01-11] MEDS ORDERED: INSULIN ASPART 100 UNITS/ML 3 ML PEN SC SCH (06:00)
[2019-01-11 07:11] LABS: Hematocrit (blood only) 32.8 % (42-52); Hemoglobin 10.8 g/dL (14.0-18.0); Immature Granulocytes # (auto) 0.02 K/uL (0.00-0.02); Immature Granulocytes % (auto) 0.4 %; Lymphocytes # (auto) 0.59 K/uL (1.2-3.4); Lymphocytes % (auto) 10.9 %; Mean Corpuscular Hemoglobin 20.9 pg (25-34); Mean Corpuscular Hgb Conc 32.9 g/dL (32-36); Mean Corpuscular Volume 63.4 fL (80-100); Mean Platelet Volume 9.9 fL (7.4-10.4); Monocytes # (auto) 0.07 K/uL (0.11-0.59); Monocytes % (auto) 1.3 %; Neutrophils # (auto) 4.74 K/uL (1.4-6.5); Neutrophils % (auto) 87.4 %; Platelet Count 198 K/uL (130-400); RDW Coefficient of Variation 16.6 % (11.5-14.5); Red Blood Count 5.17 M/uL (4.7-6.1); White Blood Count 5.42 K/uL (4.8-10.8)
[2019-01-11 07:34] LABS: Estimated Average Glucose 126 mg/dl
[2019-01-11 07:43] LABS: Anisocytosis Present; Microcytosis Present; Poikilocytosis Present
[2019-01-11 07:44] LABS: Albumin Level 3.7 gm/dl (3.4-5.0); BUN Creatinine Ratio 18.8 (10-20); Calcium 9.2 mg/dl (8.5-10.1); Creatinine Clr Calc Pharmacy 191.2 ml/min; Est GFR (African American) 132.2; Est GFR (Non-African American) 114.1; Potassium 3.4 mmol/L (3.5-5.1)
[2019-01-11 07:52] LABS: Bilirubin,Total 0.8 mg/dl (0.2-1); Globulin 3.6 gm/dl (2.5-4.0); Total Protein 7.3 gm/dl (6.4-8.2)
[2019-01-11] MEDS ORDERED: FUROSEMIDE 20 MG TAB PO SCH (09:00)
[2019-01-11] MEDS ORDERED: POTASSIUM CHLORIDE 10 MEQ TABCR PO SCH (09:00)
[2019-01-11] MEDS ORDERED: lisinopriL 20 MG TAB PO SCH (09:00)
[2019-01-11] MEDS ORDERED: ENOXAPARIN INJ 40 MG/0.4 ML SYR SQ SCH (09:00)
[2019-01-11] MEDS ORDERED: hydroCHLOROthiazide 25 MG TAB PO SCH (09:00)
[2019-01-11] MEDS ORDERED: ASPIRIN 81 MG ECTAB PO SCH (09:00)
[2019-01-11] MEDS ORDERED: NON-FORMULARY MEDICATION (Turmeric 400 MG) PO SCH (09:00)
--- NOTE | 2019-01-11 09:19 | Cardiology Consultation ---
Date of Consultation January 11, 2019 Assessment & Plan (1) Chest pain: The patient's description of chest discomfort is atypical for classic angina pectoris. However realizing his numerous cardiac risk factors, agree with proceeding with a stress echocardiogram. (2) Dyspnea on exertion: Suspect there is related to a degree of hypervolemia as he has been off his diuretic for 1 week. (3) Edema of lower extremity: As above. He does also carry a history lymphedema. (4) Hypertension: Adequate control on current regimen. (5) High cholesterol: Continue rosuvastatin. History of Present Illness Attending Physician: Berry White History of Present Illness Mr. Cochran is a 53-year-old male admitted yesterday with a chest pain syndrome exertional dyspnea, and lower extremity edema. This consultation was ordered of systems management. Patient claims he was in usual state of health until approximately 5 days prior presentation. He developed a constant discomfort in the left epigastrium which was constant. He did notice an increase in his discomfort when bending over to tie his shoes. Over the same timeframe, the patient has noted progressive exertional dyspnea and lower extremity edema. However, he has not taken his usual hydrochlorothiazide in approximately 1 week. The patient has never known of a cardiac event. He has never a cardiac stress test or cardiac catheterization. Currently, patient is resting comfortably in bed complaints. Past medical surgical history 1. Hypertension 2. Hypercholesterolemia 3. Hyperglycemia 4. Thalassemia minor 5. Migraine headaches 6. Lymphedema 7. Right [id number] 8. Rotator cuff repair 9. Tunnel release Social history and lives with his Works at a [employer] company No tobacco Family history Father 79 and has a dilated cardiomyopathy with an implantable device. Mother 72 chronically ill No early coronary artery disease Review of systems A 10 point review of systems was undertaken and negative except for that described above. Allergies Allergy/AdvReac Type Severity Reaction Status Date / Time No Known Allergies Allergy Verified 01/10/19 18:34 Home Medications Home Medications Medication Instructions Recorded Confirmed Type cabergoline 0.5 mg PO DIRECTED 01/10/19 01/10/19 History cholecalciferol (vitamin D3) 5,000 unit PO BID 01/10/19 01/10/19 History [Vitamin D3] furosemide 20 mg PO QAM 01/10/19 01/10/19 History hydrochlorothiazide 25 mg PO DAILY 01/10/19 01/10/19 History lisinopril 20 mg PO DAILY 01/10/19 01/10/19 History magnesium oxide 400 mg PO BID 01/10/19 01/10/19 History metformin 1,000 mg PO BID 01/10/19 01/10/19 History [id number] oil-D3 [Dry 1 cap PO BID 01/10/19 01/10/19 History [employer] [place] [employer]] potassium chloride 20 meq PO BID 01/10/19 01/10/19 History rosuvastatin 10 mg PO HS 01/10/19 01/10/19 History turmeric 400 mg PO BID 01/10/19 01/10/19 History Patient History Medical History History of kidney stones High cholesterol Hypertension (Chronic) Surgical History History of knee surgery Family History Other Heart disease Lung disease Social History Preferred Language: Romanian Communication Ability: Effective Gsa Coordinator Required: No Beliefs That Will Affect Care: Denominational Denominational Beliefs: [employer] Current Living Situation: Spouse Other Information That Helps Us Care for You: No Feels Safe at Home: Yes Safety Concerns: Feels Safe At This Time Smoking Status: Former smoker Do You Dip or Chew Tobacco: No ; Smoking End Date: 25 years ago ; Second Hand Exposure: No ; Tobacco Cessation Education Requested by Patient: No Hx Alcohol Use: No Hx Substance Use: No Physical Exam Physical Exam: In general this is an obese white male in no acute distress. HEENT exam is negative. Neck is supple with full carotid upstrokes. There are no carotid bruits. Jugular venous pressure is flat at 90. There is no thyromegaly. Cardiovascular exam reveals a regular rhythm with a normal S1 and S2. No S3, S4, or murmurs are noted. Lungs are clear without rales, rhonchi, or wheezes. Abdomen is soft and nontender without bruits. Extremities reveal intact radial arteries bilaterally. There is 2+ nonpitting edema of the lower extremities bilaterally. Results & Data Vital Signs (Past 12 Hours) Vital Signs Temp Pulse Pulse Pulse Resp BP BP 01/11/19 07:07 36.7 C 52 L 16 161/88 H 01/11/19 04:20 36.8 C 58 L 18 147/88 H 01/11/19 00:30 36.9 C 54 L 16 158/93 H 01/11/19 00:29 55 L 19 154/88 H 01/11/19 00:00 55 L 13 154/88 H 01/10/19 23:00 46 L 16 142/74 H 01/10/19 22:00 51 L 17 159/84 H 01/10/19 21:56 47 L 17 161/90 H 01/10/19 21:50 50 L 18 161/90 H Pulse Ox 01/11/19 07:07 96 01/11/19 04:20 94 01/11/19 00:30 95 01/11/19 00:29 96 01/11/19 00:00 01/10/19 23:00 01/10/19 22:00 95 01/10/19 21:56 96 01/10/19 21:50 97 Laboratory Results CBC notes hemoglobin of 10.8, hematocrit 32.8, white count 5.4, platelet count [id number]. Electrolytes dose of 140, potassium 3.4, chloride 105, bicarb 26, BUN 12, creatinine 0.62, glucose of 36. Three troponin I levels have been undetectable less than 0.0. Diagnostic Findings EKG notes sinus bradycardia without abnormalities. Chest x-ray notes cardiomegaly but no acute disease. Lower extremity noninvasive study showed evidence of DVT. CT scan of chest shows no evidence of pulmonary emboli. A 4.0 x 4.0 ascending thoracic aortic dilatation is noted. PG Care Time/CCT Total # of Minutes Spent Total Time Spent with Patient: Total time spent is greater than 50% in coordination of care (as documented) at patient's floor/unit and/or counseling patient: (1) Chest pain Chest pain type: unspecified Qualified Code(s): R07.9 - Chest pain, unspecified
[2019-01-11] MEDS ORDERED: ROSUVASTATIN CALCIUM 10 MG TAB PO SCH (21:00)
--- NOTE | 2019-01-23 22:06 | Discharge Summary ---
Date of Service January 11, 2019 Admission HPI Per Admitting Provider Patient is a pleasant 53 yo obese M H HTN, pre-diabetes, HLD, former smoker who presents with a 5 day history of epigastric pain, dyspnea on exertion, and left leg swelling. History provided by as patient had a migraine and was sleeping on arrival. Patient originally thought the epigastric discomfort was related to eating spicy foods, but denied any reflux symptoms. He then thought he was possible constipated, so took a fair amount of laxatives, which helped to clear out his bowels but did not alleviate the pain. In the past few days, he has also noted dyspnea on exertion as well as noticing his L leg has begun to swell. He has a h/o knee surgery on the R, so swelling in the R leg is not atypical, but the left leg swelling is abnormal. In the ER, patient hypertensive but vitals otherwise stable. Initial labwork revealed a d-dimer of 1030, Hgb 10.3/hct 31, K+ of 2.9, negative troponin, negative LFTs, negative lipase. Imaging noted NO DVT or PE, CXR with cardiomegaly and no acute process. He was given a duoneb and 10 decadron, 40 of K+, nitro paste (which gave him the migraine), and pepcid. His heart score was evaluated to be 4, and he will be admitted for a chest pain rule out. Principal Diagnosis Atypical chest pain Discharge Exam Constitutional: WD/WN, vitals as above + morbidly obese and comfortable; not in distress Respiratory: normal respiratory effort, lungs clear to auscultation Cardiovascular: Rate/Rhythm: regular rate and regular rhythm Extremities: + edema (1-2+ to shins bilaterally) Gastrointestinal (Abdomen): Inspection/Auscultation: normal bowel sounds Percussion/Palpation: nontender Skin: no rashes, warm and dry Neurologic: PERRL, EOMI, accommodation nl, no face palsy, no dysarthria Psychiatric: Orientation: alert and oriented x 3 Discharge Data Allergies Allergy/AdvReac Type Severity Reaction Status Date / Time No Known Allergies Allergy Verified 01/10/19 18:34 Consultations 01/10/19 22:26 ED Decision to Admit Stat 01/11/19 07:49 Consult Cardiology Routine Ordered Studies 01/10/19 19:10 CT angio chest PE protocol Stat 01/10/19 19:11 US venous doppler LE Stat Hospital Course (1) Chest pain: Chest pain -Admit to tele -Will trend troponin -Have ordered stress test in AM, npo from midnight -Considering constellation of symptoms, will also check BNP in AM -Recommend stress test with elevated heart score -Pepcid qshift, GI cocktail prn -Will add daily ASA On day of discharge, evaluated by cardio. Had negative stress test. Patient will be followed up as an outpatient. No further workup recommended at this time. Dyspnea on Exertion -prn duonebs HTN -Cont home meds -Titrate prn Hypokalemia -2.9 on arrival -Repleted with 40 in ER, 20 on admission, and NSS with 20K at 125. -Cont home dosing as well -Cont to monitor Edema -Scans negative for PE or DVT -Cont to monitor -Follow BNP HLD -Cont home regimen -Check fasting lipids in AM Thalassemia -H/H 02/17 -Cont to monitor Code: full DVTP: lovenox Dispo: tele (2) Hypertension: (3) Dyspnea on exertion: (4) Hypokalemia: (5) Edema of lower extremity: (6) High cholesterol: (7) Thalassemia: Total Time Total Time Spent Total Time Spent (In Minutes): 32 Total Time Includes: Examination of the Patient, Discharge Planning and Medication Reconciliation Discharge Plan Discharge Items Patient Disposition: Home - Self-Care Reason For Visit: DYSPNEA, CHEST PAIN Discharge Diagnosis: Chest pain Activity: Resume your previous activity Non-emergency contact: Primary Care Provider Call non-emergency contact if: you have any medication questions Follow-up/Referrals: Joe Brown DO [Primary Care Provider] - 01/18/19 10:00 am (Please, follow up at Dr. Brown's office, with Kendall Dimas PA-C, on ThursdayJanuary 18 at 10:00 am. *If you need to change this appointment, call the office at [phone].) Diet: Regular Addtl Attending Provider Instructions: Will recommend followup with PCP within 10 days. Pending Studies at Discharge: No Stand-Alone Forms: My [facility] sickweather Medications and DC Order Prescriptions: New aspirin [Ecotrin Low Strength] 81 mg Tablet,Delayed Release (Dr/Ec) 81 mg PO QAM Qty: 30 RF: 0 potassium chloride 10 mEq capsule, extended release 10 meq PO DAILY Qty: 30 RF: 0 Continued potassium chloride 10 mEq capsule, extended release 20 meq PO BID RF: 0 lisinopril 20 mg tablet 20 mg PO DAILY RF: 0 cabergoline 0.5 mg tablet 0.5 mg PO DIRECTED RF: 0 hydrochlorothiazide 25 mg tablet 25 mg PO DAILY RF: 0 metformin 500 mg tablet extended release 24 hr 1,000 mg PO BID RF: 0 rosuvastatin 10 mg tablet 10 mg PO HS RF: 0 cholecalciferol (vitamin D3) [Vitamin D3] 5,000 unit Tablet 5,000 unit PO BID RF: 0 Dry [employer] 667-250 mg-unit Capsule 1 cap PO BID RF: 0 magnesium oxide 400 mg magnesium Capsule 400 mg PO BID RF: 0 turmeric 400 mg Capsule 400 mg PO BID RF: 0 furosemide 20 mg tablet 20 mg PO QAM Qty: 30 RF: 0 Discharge Orders: Discharge Order (Routine); Ordered 01/11/19 Ordered By: Berry Forrester/Other Patient Handouts: Prediabetes, Diabetes Healthy Meals, Diabetes Carbs, Diabetes Exercise Benefits, Diabetes Exercise Get Started, Diabetes Activity Tips, Diabetes Manage A1C Test Admission Data Admit Date/Time: 01/10/19 23:34 Attending Provider: Berry White Admit Provider: Erika Worthy Primary Care Provider: Joe Brown Other Providers: Sugey Marshall Charles C. Other Interventions: Discharge Summary Assessment (RN) Last Done: 01/11/19 11:15 DC Date/Time DO NOT enter until pt leaves facility: 01/11/19 12:29
== END 2019-01-11 12:29 | disposition home or self-care (01) ==
LOC: 2E 17:24 → ED 17:24 → SUATTDRO 23:34 → 2E 01-11 00:29
DX: R60.0 Localized edema; E78.00 Pure hypercholesterolemia, unspecified; I10 Essential (primary) hypertension; Z79.899 Other long term (current) drug therapy; D56.9 Thalassemia, unspecified; E87.6 Hypokalemia; R07.9 Chest pain, unspecified; Z87.891 Personal history of nicotine dependence; R06.02 Shortness of breath; E78.5 Hyperlipidemia, unspecified